=== PATIENT | female | born 1940 | race Caucasian/White ===

== ENCOUNTER 2023-02-20 09:32 | Emergency (ER) | payer OTHER, SELFPAY ==
--- NOTE | ~2023-02-20 | XR_ITS ---
EXAMINATION: XR humerus RT DATE: 02/20/2023 10:10 INDICATION: Right upper arm pain. Fall. TECHNIQUE: 2 views of right humerus on 3 radiographs were obtained. COMPARISON: None. FINDINGS: Bone alignment is normal. No fracture. There is mild osteoarthritis of glenohumeral joint, severe osteoarthritis of the acromioclavicular joint, and mild osteoarthritis of the elbow joint. No elbow joint effusion. IMPRESSION: 1. Polyarticular osteoarthritis. Reviewed, dictated and finalized at location A. [facility]
--- NOTE | 2023-02-20 09:42 | ED.UPPEXIN ---
HPI - Extremity Injury (Upper) General Chief Complaint: Fall Stated Complaint: rt arm injury/fall Time Seen by Provider: 02/20/23 09:36 Source: patient Mode of arrival: ambulatory Limitations: no limitations History of Present Illness HPI narrative: Patient is an 82-year-old female who presents with right upper arm pain after fall last night. Patient states she tripped over her cat and fell. Did not lose consciousness. Has not had any headaches, nausea, vomiting. Patient states it is painful to left arm away from body. Denies any swelling or bruising. Denies any numbness, tingling or weakness to hand. Related Data Home Medications Medication Instructions Recorded Confirmed amlodipine 5 mg tablet 5 mg DIRECTED 02/20/23 02/20/23 aspirin 81 mg tablet,delayed 81 mg PO DAILY 02/20/23 02/20/23 release hydrochlorothiazide 12.5 mg capsule 12.5 mg DIRECTED 02/20/23 02/20/23 lisinopril 10 mg tablet 10 mg DIRECTED 02/20/23 02/20/23 metformin 500 mg tablet,extended 500 mg PO DIRECTED 02/20/23 02/20/23 release 24 hr metoprolol tartrate 50 mg tablet 50 mg DIRECTED 02/20/23 02/20/23 oxybutynin chloride 10 mg 10 mg PO DIRECTED 02/20/23 02/20/23 tablet,extended release 24 hr pravastatin 40 mg tablet 40 mg DIRECTED 02/20/23 02/20/23 Allergies Allergy/AdvReac Type Severity Reaction Status Date / Time No Known Allergies Allergy Verified 06/23/16 16:00 Review of Systems Review of Systems: All systems reviewed & are unremarkable except as noted in HPI and below Constitutional: Constitutional: Denies body ache(s), Denies chills, Denies fatigue, Denies fever(s), Denies headache(s), Denies malaise and Denies weakness Eyes: Eyes: Denies blurry vision, Denies irritation and Denies loss of vision ENT: Denies otalgia, Denies headache(s), Denies nasal discharge, Denies sinus pain and Denies sore throat Cardiovascular: Cardiovascular: Denies chest pain, Denies irregular heart rhythm and Denies dyspnea Respiratory: Respiratory: Denies dyspnea Gastrointestinal: Gastrointestinal: Denies abdominal pain, Denies melena, Denies hematochezia, Denies diarrhea, Denies nausea and Denies vomiting Musculoskeletal: Musculoskeletal: Denies back pain, Denies myalgias, Reports arthralgias and Denies joint swelling Integumentary/Breasts: Skin/Breast: Denies pruritus and Denies rash Neurologic: Denies headache(s), Denies loss of vision and Denies weakness Psychiatric: Psychiatric: Reports no additional psychiatric complaints Endocrine: Endocrine: Denies fatigue PMFSH Comments At time of signature, agree with nursing past medical, surgical, social and family history. There is no relevant family history pertinent to the presenting complaint. Exam Const: General: cooperative, healthy appearing, comfortable, no acute distress and well nourished Nutritional Appearance: well nourished Orientation/consciousness: patient oriented x3 Limitations: no limitations HENMT: Head: normal to inspection, normocephalic and atraumatic Ears: hearing grossly normal bilaterally and external ears normal Face/Nose/Sinus: Normal external nose present, normal facial exam and face symmetric Face and sinus: normal facial exam and face symmetric Mouth: Yes lip normal Eyes: General: appearance normal, both eyes and all related structures Alignment and Position: alignment normal and position normal Periorbital: periorbital findings normal Eyelids: eyelids normal Pupils: Equal, round and reactive pupils present EOM: EOMs intact bilaterally Neck: Neck: normal visual inspection, full ROM and supple Chest: Chest palpation & inspection: normal inspection of the chest Resp: Effort & Inspection: normal respiratory effort and able to speak in complete sentences Auscultation: clear to auscultation bilaterally Cardio: Rate: regular rate Rhythm: regular rhythm Heart sounds: S1 normal heart sound present and S2 normal heart sound present GI: Inspe
[2023-02-20 09:51] VITALS: BP 141/52; PULSE 69; RESP 18; TEMP 36.3; O2SAT 99
== END 2023-02-20 10:36 | disposition home or self-care (01) ==
PROVIDERS: Emergency Provider Nurse Practitioner Family; PCP Family Medicine
DX: S40.011A Contusion of right shoulder, initial encounter (principal); W01.0XXA Fall on same level from slipping, tripping and stumbling without subsequent striking against object, initial encounter; Z95.5 Presence of coronary angioplasty implant and graft; E78.00 Pure hypercholesterolemia, unspecified; I10 Essential (primary) hypertension; M19.90 Unspecified osteoarthritis, unspecified site; H26.9 Unspecified cataract; I25.10 Atherosclerotic heart disease of native coronary artery without angina pectoris; Z96.651 Presence of right artificial knee joint
CPT/HCPCS: 73060; 99213; A4565; G0463